=== PATIENT | female | born 1930 | race Caucasian/White ===

== ENCOUNTER 2018-10-22 15:31 | Emergency (ER) | payer OTHER ==
[~2018-10-22] VITALS: Ht 162.6 cm; Wt 51.7 kg
[2018-10-22 16:01] VITALS: Ht 162.6 cm; Wt 51.7 kg
[2018-10-22 18:48] VITALS: BP 115/73
== END 2018-10-22 18:49 | disposition home or self-care (01) ==
LOC: ED 15:31
DX: S51.811A Laceration without foreign body of right forearm, initial encounter (principal); S70.11XA Contusion of right thigh, initial encounter; Z90.49 Acquired absence of other specified parts of digestive tract; W18.39XA Other fall on same level, initial encounter; Y93.89 Activity, other specified; Y92.89 Other specified places as the place of occurrence of the external cause; Y99.8 Other external cause status
CPT/HCPCS: 90715; J2001